=== PATIENT | female | born 1955 | race African-American/Black ===

== ENCOUNTER 2021-12-14 21:22 | Emergency (ER) | payer MEDICARE | END 2021-12-14 23:13 | disposition left against medical advice (07) | LOC: ER 21:22 | DX: Z53.21 Procedure and treatment not carried out due to patient leaving prior to being seen by health care provider (principal) ==

== ENCOUNTER 2022-01-21 17:33 | Emergency (ER) | payer MEDICARE ==
[~2022-01-21] VITALS: Ht 160 cm; Wt 55.0 kg
[2022-01-21] MEDS ORDERED: IBUPROFEN 400MG TABLET PO ONE (19:15)
[2022-01-21] MEDS ORDERED: ACETAMINOPHEN 325MG TABLET PO ONE (19:15)
[2022-01-21] MEDS ORDERED: TUSSL MT (19:58)
[2022-01-21] MEDS ORDERED: IBUP-2028 MT (19:58)
[2022-01-21 20:23] VITALS: BP 147/86
== END 2022-01-21 20:25 | disposition home or self-care (01) ==
LOC: ER 17:33
DX: R05.9 Cough, unspecified (principal); I10 Essential (primary) hypertension; Z88.0 Allergy status to penicillin
CPT/HCPCS: 71045; 99283